=== PATIENT | female | born 1960 | race Caucasian/White ===

== ENCOUNTER → 2016-12-09 | Outpatient (CLI) | payer OTHER ==
[~2016-12-09] MED LIST: ALBUTEROL17 GM INH; BACLOFEN10 MG PO; BREO ELLIPTA 21 EACH; CLARITIN10 M2 PO; ESTRADIOL1 MG PO; HYDROCODON-ACE1 EAC5 PO; LISINOPRIL10 MG PO; PREMARIN PO; VOLTAREN75 MG PO
--- NOTE | ~2016-12-09 | US6 ---
[facility] A Service of [facility] RADIOLOGY TEXT RESULTS PATIENT: TIM VALLES LOCATION: [facility] : 58 UNIT #: [id number] AGE: [address]: Abilio White MD SEX: F ORDER DR: [id number] [facility] [address] [place], [place] [address] [id number] O MR#: [id number] Acc #: [id number] NAME: TIM VALLES : 1960 SEX: F STUDY DATE/TIME: 12/09/2016 11:04 UNIT: [facility] ROOM: STUDY DESCRIPTION: US Abdominal Limited Attending Physician: Abilio White M.D. Referring Physician: Abilio White M.D. Ordering Physician: Abilio White M.D. Primary Care Physician: Philip Reynolds Jr., A.P.R.N. MEDICAL IMAGING REPORT This report is preliminary unless electronic signature is present EXAMINATION Right upper quadrant abdominal ultrasound. DATE 12/09/2016 HISTORY Hepatitis C virus. About to start 12 weeks of treatment. Cholecystectomy in 2014. Currently denies abdominal pain. COMPARISON None. FINDINGS Pancreas has an unremarkable sonographic appearance. The liver demonstrates coarsened echotexture with diminished acoustic transmission suggesting features of hepatic steatosis. No focal liver lesions are identified. No gross cirrhotic liver morphology is evident on today's examination. Liver size is within normal limits, 17.2 cm in length. Spleen is mildly enlarged at 15.9 cm in length without focal lesion. A cyst is seen within the right upper renal pole measuring 2.1 cm. The right kidney measures 11.8 cm in length without hydronephrosis. Cholecystectomy. Common bile duct caliber is within normal limits, 6 mm. No intrahepatic biliary ductal dilation is seen. No ascites is evident. Intrahepatic IVC demonstrates color flow. IMPRESSION 1. Coarsened hepatic echotexture is nonspecific. It may represent changes of hepatic steatosis or may be related to the patient's history of hepatitis. No focal or suspicious liver lesions are [facility] of [facility] RADIOLOGY TEXT RESULTS PATIENT: TIM VALLES LOCATION: [facility] : 58 UNIT #: [id number] AGE: [address]: Abilio White MD SEX: F ORDER DR: identified on today's examination. 2. Mild splenomegaly. 3. No ascites. 4. Cholecystectomy. Dictated by... Herminia Starks M.D. THIS IS AN ELECTRONICALLY VERIFIED REPORT Herminia Starks M.D. at 12/12/2016 8:32 AM JOHANA/phong TD: 12/09/2016 17:23 JOB #: [id number] MEDICAL IMAGING REPORT Page 1 of 1 COPY
[2016-12-09 10:52] LABS: HEMATOCRIT 47.9 % (35.0-45.0); MEAN CELL VOLUME 89.8 FL (83-96); MEAN CORPUSCULAR HEMOGLOBIN 30.1 PG (28-34); MEAN CORPUSCULAR HGB CONC 33.5 g/dL (30-36); MEAN PLATELET VOLUME 9.1 FL (6.5-11.5); RED BLOOD COUNT 5.33 X10e (3.90-5.30); RED CELL DISTRIBUTION WIDTH 14.2 % (11.0-15.5); WHITE BLOOD COUNT 6.1 X10e3 (4.0-10.5)
[2016-12-09 11:43] LABS: AMPHETAMINE NEG (NEG); BARBITURATES NEG (NEG); BENZODIAZEPINES NEG (NEG); COCAINE NEG (NEG); MARIJUANA NEG (NEG); OPIATES POS (NEG); TRICYCLIC ANTIDEPRESSANTS NEG (NEG); U METHADONE NEG (NEG)
[2016-12-09 11:46] LABS: ALBUMIN SERUM 4.1 g/dL (3.5-5.0); BILIRUBIN,TOTAL 0.8 mg/dL (0.2-2.0); BUN/CREATININE RATIO 23.33; CREATININE SERUM 0.6 mg/dL (0.6-1.4); GLOM FILT RATE Estimated 101.2 mL/min (>60); POTASSIUM 4.4 mmol/L (3.5-5.1); PROTEIN TOTAL SERUM 6.9 g/dL (6.0-8.3)
[2016-12-14 13:32] LABS: HA AB IGM (HEPPAN) Nonreactive (()); HB CORE AB IGM (HEPPAN) Nonreactive (Nonreactive); HB S AG (HEPPAN) Nonreactive (Nonreactive); HEP C AB (HEPPAN) Reactive (Nonreactive)
== END | disposition home or self-care (01) ==
LOC: CGUS 12-05 10:30 → CLAB 10:08 → CGUS 10:30
PROVIDERS: Internal Medicine
DX: B19.10 Unspecified viral hepatitis B without hepatic coma (principal); R16.1 Splenomegaly, not elsewhere classified; Z90.49 Acquired absence of other specified parts of digestive tract
CPT/HCPCS: 36415; 76705; 80053; 80074; 80307; 82172; 82247; 82977; 83010; 83883; 84460; 85027; 87522; 87902

== ENCOUNTER → 2017-01-18 | Day surgery (SDC) | payer OTHER ==
--- NOTE | ~2017-01-18 | OR ---
Unit #: [id number] #: [id number] Patient: TIM VALLES [id number] [address] [address] [id number] O MR#: [id number] NAME: TIM VALLES ROOM: Date of Procedure: 01/18/2017 Admission Date: 01/18/2017 Surgeon: Abilio White M.D. : 1960 Attending Physician: Abilio White M.D. Primary Care Physician: Philip Reynolds Jr., A.P.R.N. OPERATIVE REPORT PROCEDURE PERFORMED Colonoscopy with snare polypectomy. INDICATIONS FOR PROCEDURE A 56-year-old female, father with colon cancer. MEDICATIONS Monitored anesthesia. POSTOPERATIVE FINDINGS 1. 5 mm polyp, rectum, snared and sent for histopathology. 2. Rest of the colon exam to cecum was normal. 3. Diverticulosis. PLAN Given the family history, recommend colonoscopy in 5 years. DESCRIPTION OF PROCEDURE The patient was explained of the procedure, risks, and benefits along with the risks and benefits of anesthesia. She was brought to the endoscopy room. Propofol anesthesia was given. Rectal exam was done, which was normal. Colonoscope was lubricated, passed up the rectum, advanced under direct vision all the way to the cecum. Cecum was identified by ileocecal valve and appendiceal orifice. I then started to pull the scope out carefully looking. Small polyp in the rectum was snared and sent for histopathology. Rest of the exam appears to be normal. I retroflexed in the rectum, small hemorrhoids were seen. The scope was gently pulled out. She tolerated it well. No major complications seen. Dictated by... Ryan Rayo/graciela TD: 01/19/2017 05:47 JOB #: [id number] Unit #: [id number] #: [id number] Patient: TIM VALLES OPERATIVE REPORT Page 1 of 1 X Abilio White MD PROCEDURE OPERATIVE NOTE
== END | disposition home or self-care (01) ==
LOC: COPS 11:10
DX: Z12.11 Encounter for screening for malignant neoplasm of colon (principal); D12.8 Benign neoplasm of rectum; K57.30 Diverticulosis of large intestine without perforation or abscess without bleeding; K64.9 Unspecified hemorrhoids; J44.9 Chronic obstructive pulmonary disease, unspecified; K21.9 Gastro-esophageal reflux disease without esophagitis; I10 Essential (primary) hypertension; Z80.0 Family history of malignant neoplasm of digestive organs; Z90.49 Acquired absence of other specified parts of digestive tract; Z79.899 Other long term (current) drug therapy; Z87.891 Personal history of nicotine dependence
CPT/HCPCS: 88305; J2250

== ENCOUNTER → 2017-03-15 | Outpatient (CLI) | payer OTHER | END | disposition home or self-care (01) | LOC: CLAB 15:29 | DX: B19.20 Unspecified viral hepatitis C without hepatic coma (principal) | CPT/HCPCS: 36415; 87902 ==

== ENCOUNTER → 2017-03-28 | Outpatient (CLI) | payer OTHER ==
[2017-03-28 16:02] LABS: HEMATOCRIT 46.5 % (35.0-45.0); HEMOGLOBIN 15.7 gm/dL (12.0-16.0); MEAN CELL VOLUME 88.5 FL (83-96); MEAN CORPUSCULAR HEMOGLOBIN 29.8 PG (28-34); MEAN CORPUSCULAR HGB CONC 33.7 g/dL (30-36); MEAN PLATELET VOLUME 8.7 FL (6.5-11.5); RED BLOOD COUNT 5.26 X10e (3.90-5.30); RED CELL DISTRIBUTION WIDTH 13.5 % (11.0-15.5); WHITE BLOOD COUNT 7.2 X10e3 (4.0-10.5)
[2017-03-28 16:24] LABS: AMPHETAMINE NEG (NEG); BARBITURATES NEG (NEG); BENZODIAZEPINES NEG (NEG); COCAINE NEG (NEG); MARIJUANA NEG (NEG); OPIATES NEG (NEG); TRICYCLIC ANTIDEPRESSANTS NEG (NEG); U METHADONE NEG (NEG)
[2017-03-28 16:24] LABS: ALBUMIN SERUM 4.1 g/dL (3.5-5.0); BUN/CREATININE RATIO 28.57; CALCIUM SERUM 9.7 mg/dL (8.4-10.2); CREATININE SERUM 0.7 mg/dL (0.6-1.4); GLOM FILT RATE Estimated 95.5 mL/min (>60); PROTEIN TOTAL SERUM 7.6 g/dL (6.0-8.3)
[2017-03-31 15:35] LABS: HA AB IGM (HEPPAN) Nonreactive (()); HB CORE AB IGM (HEPPAN) Nonreactive (Nonreactive); HB S AG (HEPPAN) Nonreactive (Nonreactive); HEP C AB (HEPPAN) Reactive (Nonreactive)
== END | disposition home or self-care (01) ==
LOC: CLAB 14:56
PROVIDERS: Internal Medicine
DX: B19.20 Unspecified viral hepatitis C without hepatic coma (principal)
CPT/HCPCS: 36415; 80053; 80074; 80307; 82172; 82247; 82977; 83010; 83883; 84460; 84703; 85027; 87522; 87902